=== PATIENT | female | born 1960 | race Caucasian/White ===

== ENCOUNTER → 2018-11-04 | Outpatient (CLI) | payer OTHER ==
[2018-11-08 15:06] LABS: HPV 16 Negative (Negative); HPV 18 Negative (Negative); HPV OTHER HR TYPES Negative (Negative)
== END | disposition home or self-care (01) ==
LOC: LAB 08:40 → LAB SHORT 08:40
PROVIDERS: Nurse Practitioner Family
DX: Z01.411 Encounter for gynecological examination (general) (routine) with abnormal findings (principal)
CPT/HCPCS: 87624; G0145

== ENCOUNTER 2019-05-26 06:07 | Day surgery (SDC) | payer OTHER ==
[~2019-05-26] VITALS: Ht 160 cm; Wt 74.0 kg
[~2019-05-26 06:07] MED LIST: CLOBETASOL PROPIONAT; ESTRADIOL PO
--- NOTE | 2019-05-26 06:34 | NUR ---
[facility] ADMISSION STARTED TO UNIT. PATIENT STATES IT WAS HER UNDERSTANDING THAT SHE WOULD BE GETTING LOCAL ONLY AND NOT NEED AND IV WILL WAIT FOR DOCTOR TO ASK. H N P DOES STATE LOCAL ONLY
--- NOTE | 2019-05-26 07:01 | NUR ---
THROAT AND BILAT NOSE SWABS DONE AND SENT TO LAB
--- NOTE | 2019-05-26 08:40 | NUR ---
05/26/19 0840 Falguni Fagan 0724 134/72 95% 59HR 0757 118/20 100% 59HR 0816 111/73 96% 59HR
--- NOTE | 2019-05-26 08:43 | NUR ---
Patient up to Ambulate independently. Gait steady. Discharge instructions reviewed with patient. Patient verbalizes understanding. Copy given to patient to take home. Patient States Post-Procedure ride home has been arranged. Discharged via wheelchair to private car for ride home.
== END 2019-05-26 23:18 | disposition home or self-care (01) ==
LOC: ORSCMMR 06:07 → ORD 07:30 → ORSCMMR 23:18
PROVIDERS: Surgery
PROC: 0JBL0ZZ Excision of Right Upper Leg Subcutaneous Tissue and Fascia, Open Approach (ICD-10-PCS; principal; 2019-05-26 07:30)
PROC: 0JBH0ZZ Excision of Left Lower Arm Subcutaneous Tissue and Fascia, Open Approach (ICD-10-PCS; principal; 2019-05-26 07:30)
PROC: 0JBF0ZZ Excision of Left Upper Arm Subcutaneous Tissue and Fascia, Open Approach (ICD-10-PCS; principal; 2019-05-26 07:30)
DX: D17.23 Benign lipomatous neoplasm of skin and subcutaneous tissue of right leg (principal); D17.22 Benign lipomatous neoplasm of skin and subcutaneous tissue of left arm; E78.5 Hyperlipidemia, unspecified; Z79.899 Other long term (current) drug therapy
CPT/HCPCS: 87081; 88304; J2250; J2704; J3010; J7120

== ENCOUNTER → 2020-08-14 | Outpatient (CLI) | payer OTHER ==
[2020-08-16 13:48] LABS: CORONAVIRUS (COVID19) CSH-NRL Negative (Negative)
== END ==
LOC: LAB SHORT 17:34 → LAB 17:34
PROVIDERS: Physician Assistant
DX: Z20.822 Contact with and (suspected) exposure to COVID-19 (principal)
CPT/HCPCS: U0003

== ENCOUNTER → 2021-02-07 | Outpatient (CLI) | payer OTHER | LOC: LAB 12:38 → LAB SHORT 12:38 | DX: D23.5 Other benign neoplasm of skin of trunk (principal); D23.71 Other benign neoplasm of skin of right lower limb, including hip | CPT/HCPCS: 88305 ==

== ENCOUNTER 2023-02-16 08:16 | Day surgery (SDC) | payer OTHER ==
[~2023-02-16] VITALS: Ht 160 cm; Wt 65.5 kg
[2023-02-16 10:02] VITALS: BP 114/79
== END 2023-02-16 09:59 | disposition home or self-care (01) ==
LOC: ORSCSDS 08:16
PROVIDERS: Specialist
PROC: 0DJD8ZZ Inspection of Lower Intestinal Tract, Via Natural or Artificial Opening Endoscopic (ICD-10-PCS; principal; 2023-02-16 09:45)
DX: Z12.11 Encounter for screening for malignant neoplasm of colon (principal); K64.8 Other hemorrhoids; K57.30 Diverticulosis of large intestine without perforation or abscess without bleeding; K21.9 Gastro-esophageal reflux disease without esophagitis; Z79.899 Other long term (current) drug therapy
CPT/HCPCS: J2704; J7120